=== PATIENT | male | born 1995 | race Caucasian/White ===

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

== ENCOUNTER 2019-05-06 11:04 | Emergency (ER) | payer SELFPAY ==
[~2019-05-06] VITALS: Ht 172.7 cm; Wt 58.8 kg
[~2019-05-06 11:04] MED LIST: CETI10CA PO; IBUP-1542 PO; SODI30SP2 NS
[2019-05-06 11:12] VITALS: BP 148/75; PULSE 68; RESP 18; Ht 172.7 cm; Wt 58.8 kg
== END 2019-05-06 12:28 | disposition home or self-care (01) ==
LOC: FTE 11:04
DX: N50.9 Disorder of male genital organs, unspecified (principal)
CPT/HCPCS: 99283